=== PATIENT | female | born 1975 | race African-American/Black ===

== ENCOUNTER 2018-11-07 01:32 | Emergency (ER) | payer BC ==
[~2018-11-07] VITALS: Ht 167.6 cm; Wt 127.0 kg
[~2018-11-07 01:32] MED LIST: AMOXICILLIN 50500 M1; FLONASE 0.05%50 MCG NASAL; IBUPROFEN 600600 M1; NAPROSYN500 MG PO; NOHOMEMEDICATIONS; NORCO 5-325 TA1 EACH PO
[2018-11-07] MEDS ORDERED: ZOFRAN ODT4 MG PO (03:00)
[2018-11-07 03:05] VITALS: BP 155/89
== END 2018-11-07 03:07 | disposition home or self-care (01) ==
LOC: ER 01:32
DX: J02.9 Acute pharyngitis, unspecified (principal); B34.9 Viral infection, unspecified; Z90.49 Acquired absence of other specified parts of digestive tract

== ENCOUNTER 2018-12-13 11:53 | Emergency (ER) | payer OTHER ==
[~2018-12-13] VITALS: Ht 167.6 cm; Wt 131.1 kg
[~2018-12-13 11:53] MED LIST changes: +ZOFRAN ODT4 MG PO
[2018-12-13] MEDS ORDERED: NORFLEX100 MG PO (12:48)
[2018-12-13] MEDS ORDERED: MOBIC7.5 MG PO (12:48)
[2018-12-13] MEDS ORDERED: MEDROLDOSEPACK PO (12:48)
[2018-12-13 13:47] VITALS: BP 150/106
== END 2018-12-13 12:56 | disposition home or self-care (01) ==
LOC: ER 11:53
DX: M54.41 Lumbago with sciatica, right side (principal); I10 Essential (primary) hypertension; Z90.49 Acquired absence of other specified parts of digestive tract